=== PATIENT | male | born 2000 | race Caucasian/White ===

== ENCOUNTER 2023-11-14 12:32 | Emergency (ER) | payer OTHER, SELFPAY ==
[2023-11-14 12:45] VITALS: BP 105/67; PULSE 67; RESP 16; TEMP 36.6; O2SAT 99
[2023-11-14 12:47] VITALS: BP 105/67; PULSE 67; RESP 16; TEMP 36.6; O2SAT 99
--- NOTE | 2023-11-14 12:49 | ED.EYEPROB ---
HPI - Eye Problem General Chief complaint: Eye Problems Stated complaint: EYE REDNESS Source: patient Mode of arrival: ambulatory Limitations: no limitations History of Present Illness HPI Narrative: 23 y/o male presented for c/o bilateral eye redness and drainage over the past month. Endorses occasional yellow drainage. Pt states he has been dealing with similar symptoms with both eyes intermittently for a few months. Since initial onset, he has been seen by and his ophtho, started new type of lenses, prescribed abx drops; states he will have improvement for a few weeks. Admits to wearing contacts after a few days of antibiotic treatment due to his job, then symptoms return. He does not sleep in contact lenses.Denies eye pain, photophobia, dizziness, headache. Unable to be seen by his ophtho today. chief complaint: eye pain Related Data Allergies Allergy/AdvReac Type Severity Reaction Status Date / Time Penicillins Allergy Rash Verified 11/14/23 12:51 Review of Systems Review of Systems: CONSTITUTIONAL: Denies body aches, fever, chills EYES: Endorses redness bilateral eyes; Denies visual changes, FB sensation, photophobia, swelling, and pain ENT: Denies rhinorrhea, congestion, sore throat, or otalgia. CARDIOVASCULAR: Denies chest pain, palpitations RESPIRATORY: Denies cough or dyspnea. SKIN: Denies rash, itching, or wounds. NEUROLOGIC: Denies headache All systems reviewed & are unremarkable except as noted in HPI and below PMFSH Comments At time of signature, I have reviewed and agree with nursing past medical, surgical, social and family history unless otherwise noted. Please see nursing chart for further information. There is no relevant family history pertinent to the presenting complaint Exam Narrative: GENERAL: Well-appearing HEAD: Normocephalic, atraumatic. EYES: bilateral conjunctival injection. No eye lid swelling or active drainage, PERRLA, EOMI. Lid eversion shows no FB. ENT: Mucous membranes pink and moist. No rhinorrhea. TMs normal bilaterally. Throat normal. Uvula midline. CHEST: Clear to auscultation. HEART: Regular rate and rhythm. ABDOMEN: Soft, nontender, nondistended SKIN: Warm, dry, no rash. Normal skin turgor. NEURO: No focal deficits. Alert and oriented x3 PSYCH: Normal affect. Course Course Emergency Course: Patient is aware of diagnosis, understands and agrees to treatment plan. Anticipatory guidance given. Patient agrees to follow-up as directed and is aware of reasons to seek care at the emergency department. Portions of this record may have been created with voice recognition software Level of Care: Express Care Visit Vital Signs Vital signs: Vital Signs Temperature 98 F 11/14/23 12:45 Pulse Rate 67 11/14/23 12:45 Respiratory Rate 16 11/14/23 12:45 Blood Pressure 105/67 11/14/23 12:45 Pulse Oximetry 99 11/14/23 12:45 Temperature 98 F 11/14/23 12:47 Pulse Rate 67 11/14/23 12:47 Respiratory Rate 16 11/14/23 12:47 Blood Pressure 105/67 11/14/23 12:47 Pulse Oximetry 99 11/14/23 12:47 MDM - Eye Problem MDM Narrative Medical decision making narrative: Discussed physical exam findings. Pt will f/u with ophtho. Advised supportive measures and signs/symptoms to go to the ER. Pt is appropriate for outpt treatment and f/u. Differential Diagnosis Differential diagnosis: Likely corneal abrasion, conjunctivitis, acute iritis and other Discharge Plan Discharge Clinical Impression: Conjunctivitis Patient Disposition: Home, Self-Care Condition: Stable Instructions: Antibiotic Form, Conjunctivitis (ED) Additional Instructions: Use eyedrops as directed Avoid touching or rubbing your eye. Use over the counter lubricating eye drops as needed for irritation Use a warm or cool washcloth on your eye for comfort Practice good handwashing and hygiene to prevent spread of infection Do not wear the contact lenses. Use
== END 2023-11-14 13:11 | disposition home or self-care (01) ==
PROVIDERS: Emergency Provider Nurse Practitioner Family
DX: H10.9 Unspecified conjunctivitis (principal)
CPT/HCPCS: 99213; G0463